=== PATIENT | female | born 1970 | race Caucasian/White ===

== ENCOUNTER 2017-03-01 23:09 | Observation (INO) | payer OTHER ==
--- NOTE | ~2017-03-01 | CR72 ---
[facility] A Service of [facility] [place] RADIOLOGY TEXT RESULTS PATIENT: SHERYL HARDY [facility] [id number] : [birth year] UNIT #: [id number] AGE: [address]: Mac Greene MD SEX: F ORDER DR: [id number] [facility] [address] [place], [place] [address] [id number] MR#: [id number] #: [id number] NAME: SHERYL HARDY : 1970 SEX: F STUDY DATE/TIME: 03/01/2017 23:45 UNIT: [facility] ROOM: STUDY DESCRIPTION: CR Chest Single View Portable Attending Physician: Bruno Brennan Ordering Physician: Ed Doc Yamileth Mccoy Primary Care Physician: Primary Care Physician No MEDICAL IMAGING REPORT This report is preliminary unless electronic signature is present EXAM Portable chest INDICATION Chest pain beginning today with shortness of air. FINDINGS A portable view of the chest was obtained. The heart size and vascularity are normal and the lungs are clear. There is significant external object overlying the left upper chest. There are postop changes of the cervical spine. IMPRESSION There is some type of external material over the left upper chest. I do not think there are any infiltrates present. There s no active disease. Dictated by... David Valenzuela M.D. THIS IS AN ELECTRONICALLY VERIFIED REPORT David Valenzuela M.D. at 03/02/2017 5:56 AM JIGNESH/liset TD: 03/02/2017 02:09 JOB #: [id number] MEDICAL IMAGING REPORT Page 1 of 1 COPY
--- NOTE | ~2017-03-01 | TH ---
Unit #: [id number] #: [id number] Patient: SHERYL HARDY [id number] [address] [address] [id number] I MR#: [id number] NAME: SHERYL HARDY : 1970 SEX: F STUDY DATE/TIME: 03/02/2017 UNIT: C3A PCU ROOM: 304 STUDY DESCRIPTION: NUCLEAR STUDY Attending Physician: Mac Greene M.D. Primary Care Physician: Primary Care Physician No CARDIOLOGY REPORT EXAM Nuclear Study, EKG component FINDINGS Baseline EKG normal sinus rhythm. Nonspecific ST-T changes. Resting heart rate 55 per minute, blood pressure 122/79. This 46-year-old patient received 0.4 mg of Lexiscan intravenously. During the test, no ischemic changes noted, no arrhythmias noted. Blood pressure was stable. INTERPRETATION 1. Nondiagnostic EKG during Lexiscan. 2. No arrhythmias noted. 3. Stable blood pressure during the test. 4. Correlate with the Cardiolite study. EXAM Nuclear Study, Cardiolite study DESCRIPTION This 46-year-old patient received 0.4 mg of Lexiscan intravenously, followed by 32.5 mCi of technetium-99m Cardiolite and images were obtained according to standard SPECT protocol. For rest images 11.15 mCi of Cardiolite was injected. Images were reviewed in both phases. FINDINGS Overall study quality is excellent. LV cavity size is normal in both images. No lung activity. RV is normal. Rotating raw data showed no significant artifact, soft tissue attenuation, or GI uptake. Review of the SPECT images showed a normal homogeneous radiotracer concentration throughout the myocardium in both the stress and rest images. Gated images showed a normal LV wall thickening and wall motion with an estimated LV ejection fraction 59%. IMPRESSION 1. Myocardial perfusion imaging is normal. 2. No evidence of ischemia or infarct. 3. Normal left ventricular dimensions. 4. Normal systolic left ventricular function with an estimated left ventricular ejection fraction 59%. Unit #: [id number] #: [id number] Patient: SHERYL HARDY Dictated by... Yamileth Gonzalez/cheyenne TD: 03/02/2017 23:05 JOB #: [id number] CARDIOLOGY REPORT Page 1 of 1 X Andrea Armstrong MD CARDIOLOGY REPORT
--- NOTE | ~2017-03-01 | EKG ---
PATIENT: SHERYL HRADY UNIT #: [id number] Ventricular Rate: 74 BPM Atrial Rate: 74 BPM P-R Interval: 140 ms QRS Duration: 84 ms Q-T Interval: 414 ms QTC Calculation(Bezet): 459 ms P Gaylord: 27 degrees Calculated R Gaylord: 25 degrees Calculated T Gaylord: 45 degrees Diagnosis Line: Normal sinus rhythm Diagnosis Line: Low voltage QRS Diagnosis Line: Borderline ECG Diagnosis Line: No previous ECGs available Diagnosis Line: Confirmed by ZONIA NORMAN MD ([id number]) on Diagnosis Line: 03/02/2017 11:33:26 AM INTERPRETING MD: ESTER CHRIS
--- NOTE | ~2017-03-01 | HP ---
Unit #: [id number] #: [id number] Patient: SHERYL HARDY [id number] [address] [address] [id number] I MR#: [id number] NAME: SHERYL HARDY ROOM: 304 Age: 46 Sex: F Admission Date: 03/02/2017 : 1970 Attending Physician: Mac Greene M.D. Primary Care Physician: No Primary Care Physician HISTORY AND PHYSICAL REASON FOR ADMISSION Chest pain. HISTORY OF PRESENT ILLNESS This is a 46-year-old white female who is a patient of Dr. Bullock. She has a prior history of HIV, anemia, hypertension, seizure disorder, bipolar disorder and tobacco abuse. She reportedly had a cardiac cath done in 2014 with a reported 80% blockage which was treated medically (records are not available at this time). She reported to the ER yesterday with chest pain described as chest tightness spreading into her left back with some shortness of air and diaphoresis. The patient denied nausea or radiating pain into her arm or jaw. The pain lasted approximately 10 minutes, then resolved but returned later. Nitroglycerin times one did not help so she came to the ER. She does report that she occasionally has intermittent chest pain that resolves with nitroglycerin usually. Currently, she is chest pain free. PAST MEDICAL HISTORY 1. HIV. 2. Anemia. 3. Hypertension. 4. Seizure disorder. 5. Bipolar disorder. 6. Tobacco abuse. 7. Cardiac cath in 2014 with 80% blockage and medical management. PAST SURGICAL HISTORY 1. Cervical fusion. 2. Hysterectomy. 3. Tubal ligation. SOCIAL HISTORY Half pack per day smoker x30 years. The patient denies alcohol or illicit drug use. FAMILY HISTORY Negative for premature coronary artery disease. ALLERGIES Penicillin and latex. HOME MEDICATIONS 1. Pravachol 20 mg p.o. daily. Unit #: [id number] #: [id number] Patient: SHERYL HARDY 2. Gabapentin 300 mg p.o. four times a day. 3. Protonix 40 mg p.o. daily. 4. Vitamin D3 1,000 units p.o. daily. 5. Breo Ellipta one inhalation daily. 6. Aspirin 81 mg p.o. daily. 7. Seroquel 300mg p.o. twice a day. 8. Primidone 50 mg p.o. at bedtime. 9. Sarafem 20 mg daily. 10. Zyrtec 10 mg p.o. daily. 11. Hydrochlorothiazide 12.5 mg p.o. daily. 12. Diclofenac sodium 75 mg p.o. twice a day. 13. Hydroxyzine pamoate 25 mg p.o. three times a day. 14. Coreg 12.5 mg p.o. twice a day. 15. Nitroglycerin 0.4 mg sublingual as needed for chest pain. 16. Lisinopril 10 mg p.o. daily. REVIEW OF SYSTEMS Otherwise negative except for what was stated in the HPI. PHYSICAL EXAMINATION GENERAL APPEARANCE: This is a pleasant 46-year-old female resting in bed in no acute distress. VITAL SIGNS: Temperature 97.8. Heart rate 68. Respiratory rate 16. Blood pressure 134/86. Height 64". Weight 79.8 kg. HEENT: Head is atraumatic and normocephalic. Pupils are equal and round. Mucous membranes are moist. NECK: Supple. Trachea is midline. Negative for JVD. LUNGS: Clear to auscultation. Nonlabored respirations. CARDIOVASCULAR: S1 and S2. Regular rate and rhythm. Negative for murmur, rubs or gallops. ABDOMEN: Soft, nontender, nondistended. EXTREMITIES: Pulses are palpable. No pedal edema. No edema. No cyanosis. NEUROLOGIC: Alert and oriented x3. The patient moves all extremities equally and follows commands without difficulty. DIAGNOSTIC STUDIES LABORATORY: Sodium 139, potassium 3.1, chloride 104, BUN 11, creatinine 0.7, glucose 97. Hemoglobin 12.8, hematocrit 39.1, WBC count 8.4, platelets 190. AST 26, ALT 24, alkaline phosphatase 99. Point of care troponin less than 0.05 and troponin at 7 a.m. less than 0.03. IMAGING: Chest x-ray showed no active disease. CARDIOVASCULAR: EKG revealed normal sinus rhythm with a ventricular rate of [address]-T wave changes. ASSESSMENT 1. Chest pain, troponin and EKG negative. 2. HIV, well maintained on medications. 3. Coronary artery disease with reported 80% blockage in 2015, records not available at this time. 4. Tobacco abuse. 5. Seizure disorder. 6. Bipolar disorder. 7. Hypokalemia. PLAN Unit #: [id number] #: [id number] Patient: SHERYL HARDY Currently, chest pain free. Troponins and EKGs were negative for ischemia. We will obtain her cath report and do a stress test. Check TSH and hemoglobin A1C. Replace potassium and obtain echocardiogram. Continue home medications. Dictated by Mona Altamirano APRN for Yamileth Gonzalez/lee TD: 03/02/2017 10:48 JOB #: [id number] HISTORY AND PHYSICAL Page 1 of 1 X X HISTORY AND PHYSICAL
--- NOTE | ~2017-03-01 | DS ---
Unit #: [id number] #: [id number] Patient: SHERYL HARDY [id number] [address] [address] [id number] I MR#: [id number] NAME: SHERYL HARDY ROOM: 304 Age: 46 Sex: F Admission Date: 03/02/2017 : 1970 Discharge Date: 03/02/2017 Attending Physician: Mac Greene M.D. DISCHARGE SUMMARY DISCHARGE DIAGNOSES 1. Chest pain, noncardiac. 2. Human immunodeficiency virus. 3. Coronary artery disease, status post catheterization 2014, which revealed nonobstructive disease. 4. Tobacco abuse. 5. Seizure disorder. 6. Bipolar disorder. DISCHARGE MEDICATIONS 1. Pravachol 20 mg p.o. once a day. 2. Gabapentin 300 mg p.o. 4 times a day. 3. Protonix 40 mg p.o. daily. 4. Vitamin D3 1000 units p.o. daily. 5. Breo Ellipta 1 inhalation daily. 6. Aspirin 81 mg p.o. daily. 7. SEROquel 300 mg p.o. twice a day. 8. Primidone 50 mg p.o. at bedtime. 9. Sarafem 20 mg p.o. daily. 10. Zyrtec 10 mg p.o. daily. 11. Hydrochlorothiazide 12.5 mg p.o. daily. 12. Diclofenac sodium 75 mg p.o. twice a day. 13. Hydroxyzine pamoate 25 mg p.o. 3 times a day. 14. Coreg 12.5 mg p.o. twice a day. 15. Nitroglycerin 0.4 mg sublingual as needed for chest pain. 16. Lisinopril 10 mg p.o. once a day. HOSPITAL COURSE This is a 46-year-old, female whose primary bridge inspector is Dr. Bullock. She has a prior history of HIV, anemia, hypertension, seizure disorder, bipolar disorder, and tobacco abuse. She had a cardiac cath in 2014, which showed nonobstructive coronary artery disease. He reported to the ER yesterday with chest pain described as chest pain described as chest tightness spreading into her left back with some shortness of air and diaphoresis after being outside in the hot sun for a prolonged period of time. The pain resolved after 10 minutes and then returned later and did not resolve with nitroglycerin so she came to the ER. She has not had any recurrent chest pain since arriving in the ER. She underwent stress test today. Attempted Cardiolite exercise stress test, but it had to be stopped due to extreme fatigue 8 minutes into the test with her heart rate not close to target heart rate. She was changed to a Lexiscan Cardiolite stress test, which she underwent. Nuclear images showed no inducible ischemia. An echocardiogram was done, which showed left ventricular ejection fraction 55% and left ventricular hypertrophy per Dr. Armstrong. Unit #: [id number] #: [id number] Patient: SHERYL HARDY She is currently chest pain free with no recurrent incidences of chest pain during her hospital stay. She is stable for discharge home today. PHYSICAL EXAMINATION Stable for discharge. VITAL SIGNS: Temp 97.5, heart rate 53, respirations 20, O2 sat 98, and blood pressure 103/57. CHEST: Clear to auscultation without rales, rhonchi, or wheezing. HEART: S1 and S2. Regular rate and rhythm. ABDOMEN: Soft with positive bowel sounds auscultated. EXTREMITIES: Pedal pulses are palpable. No edema and no cyanosis. DIAGNOSTIC STUDIES LABORATORY: Glucose 97, BUN 11, creatinine 0.7, sodium 139, potassium 3.1. Troponin less than 0.03. Hemoglobin 12.8, hematocrit 39.1, white blood cell count 8.4, and platelets 190. IMAGING: Chest x-ray showed no active disease. CARDIOVASCULAR: EKG revealed normal sinus rhythm with ventricular rate of [address]-T wave changes. Cardiolite images report is not currently available at this time, but, per Dr. Armstrong, no inducible ischemia. Echocardiogram was performed and report is not available at this time, but, per Dr. Armstrong, LV EF 55% and left ventricular hypertrophy. DISCHARGE INSTRUCTIONS 1. The patient will be discharged home today. 2. Follow up with primary care physician in 1-2 weeks. 3. Follow up with primary bridge inspector, Dr. Bullock, in 4-6 weeks. 4. Resume home diet. 5. Counseled on smoking cessation. Patient verbalized an understanding of this. 6. Resume home medications. Dictated by... Mona Adarsh, RECYCLING OPERATIONS MANAGERYamileth Keyes TD: 03/03/2017 09:23 JOB #: [id number] DISCHARGE SUMMARY Page 1 of 1 X X DISCHARGE SUMMARY
[~2017-03-01 23:09] MED LIST: BACTRIM DS TABL1 TA1 PO; CETIRIZINE HCL10 MG PO; COREG12.5 MG PO; CYCLOBENZAPRINE5 MG PO; HYDROCHLOROTH12.5 MG PO; LISINOPRIL10 MG PO; LOW DOSE ASPIRI81 M2 PO; NASONEX17 GM; NITROSTAT0.4 MG SL; NORVIR100 M1 PO; PANTOPRAZOLE SO40 MG PO; PHENERGAN25 M1 PO; PREZISTA800 MG PO; PROZAC PO; TRUVADA 200 MG1 EACH PO; VIBRAMYCIN100 M1 PO; VOLTAREN75 MG PO; ZOFRAN8 MG PO
[2017-03-02 00:44] LABS: BASOPHIL% 0.5 % (0-2.5); DIFF IND NO; EOSINOPHIL# 0.3 X10e3 (0-0.7); EOSINOPHIL% 3.6 % (0.0-7.0); HEMATOCRIT 39.1 % (35.0-45.0); HEMOGLOBIN 12.8 gm/dL (12.0-16.0); LYMPHOCYTE# 2.7 X10e3 (1.0-3.5); LYMPHOCYTE% 31.9 % (17.0-45.0); MEAN CELL VOLUME 93.9 FL (83-96); MEAN CORPUSCULAR HEMOGLOBIN 30.8 PG (28-34); MEAN CORPUSCULAR HGB CONC 32.8 g/dL (30-36); MEAN PLATELET VOLUME 8.9 FL (6.5-11.5); MONOCYTE# 0.7 X10e3 (0-1.0); MONOCYTE% 8.9 % (3.0-12.0); NEUTROPHIL# 4.6 X10e3 (1.5-7.1); NEUTROPHIL% 55.1 % (40-75); PLATELET COUNT 190 X10e3 (140-420); RED BLOOD COUNT 4.16 X10e (3.90-5.30); RED CELL DISTRIBUTION WIDTH 12.5 % (11.0-15.5); WHITE BLOOD COUNT 8.4 X10e3 (4.0-10.5)
[2017-03-02 01:06] LABS: POC - CKMB <1.0 ng/mL (0.0-7.9); POC - TROPONIN <0.05 ng/mL (<=0.05)
[2017-03-02 01:09] LABS: ALBUMIN SERUM 3.8 g/dL (3.5-5.0); BILIRUBIN,TOTAL 0.4 mg/dL (0.2-2.0); BUN/CREATININE RATIO 13.33; CALCIUM SERUM 9.1 mg/dL (8.4-10.2); CREATININE SERUM 0.9 mg/dL (0.6-1.4); GLOM FILT RATE Estimated 76.2 mL/min (>60); POTASSIUM 3.1 mmol/L (3.5-5.1); PROTEIN TOTAL SERUM 6.7 g/dL (6.0-8.3)
[2017-03-02 01:13] LABS: BILIRUBIN, DIRECT 0.1 mg/dL (0.0-0.2); BILIRUBIN,INDIRECT 0.3 mg/dL (0.0-0.9)
[2017-03-02 02:50] LABS: POC - CKMB <1.0 ng/mL (0.0-7.9); POC - TROPONIN <0.05 ng/mL (<=0.05)
[2017-03-02] MEDS ORDERED: PRAVACHOL20 MG PO (02:58)
[2017-03-02] MEDS ORDERED: GABAPENTIN300 M2 PO (02:58)
[2017-03-02] MEDS ORDERED: LO-DOSE ASPIRIN81 M1 PO (02:59)
[2017-03-02] MEDS ORDERED: BREO ELLIPTA 11 EACH INH (02:59)
[2017-03-02] MEDS ORDERED: PROTONIX PO (02:59)
[2017-03-02] MEDS ORDERED: VITAMIN D-32000 UNI1 PO (02:59)
[2017-03-02] MEDS ORDERED: QUETIAPINE FUM300 MG PO (03:00)
[2017-03-02] MEDS ORDERED: MYSOLINE50 M1 PO (03:00)
[2017-03-02] MEDS ORDERED: SARAFEM20 MG PO (03:00)
[2017-03-02] MEDS ORDERED: HYDROCHLOROTH12.5 M1 PO (03:01)
[2017-03-02] MEDS ORDERED: ZYRTEC10 M1 PO (03:01)
[2017-03-02] MEDS ORDERED: VOLTAREN75 MG PO (03:02)
[2017-03-02] MEDS ORDERED: HYDROXYZINE PAM25 M1 PO (03:02)
[2017-03-02] MEDS ORDERED: LISINOPRIL10 MG PO (03:03)
[2017-03-02] MEDS ORDERED: CARVEDILOL12.5 MG PO (03:03)
[2017-03-02] MEDS ORDERED: NITROGLYGERIN0.4 MG SL (03:03)
[2017-03-02 07:55] LABS: BUN/CREATININE RATIO 15.71; CALCIUM SERUM 9.1 mg/dL (8.4-10.2); CREATININE SERUM 0.7 mg/dL (0.6-1.4); GLOM FILT RATE Estimated 103.2 mL/min (>60); POTASSIUM 3.1 mmol/L (3.5-5.1)
[2017-03-02 08:11] LABS: %MB 1.2 % (0.0-4.0); MB 0.9 ng/ml
[2017-03-02 13:34] LABS: HEMATOCRIT 40.1 % (35.0-45.0); HEMOGLOBIN 13.2 gm/dL (12.0-16.0); MEAN CELL VOLUME 93.6 FL (83-96); MEAN CORPUSCULAR HEMOGLOBIN 30.8 PG (28-34); MEAN CORPUSCULAR HGB CONC 32.9 g/dL (30-36); MEAN PLATELET VOLUME 8.6 FL (6.5-11.5); RED BLOOD COUNT 4.29 X10e (3.90-5.30); RED CELL DISTRIBUTION WIDTH 12.6 % (11.0-15.5); WHITE BLOOD COUNT 7.3 X10e3 (4.0-10.5)
[2017-03-02 14:09] LABS: BUN/CREATININE RATIO 14.28; CALCIUM SERUM 9.3 mg/dL (8.4-10.2); CREATININE SERUM 0.7 mg/dL (0.6-1.4); GLOM FILT RATE Estimated 103.2 mL/min (>60); POTASSIUM 4.1 mmol/L (3.5-5.1)
[2017-03-02 14:37] LABS: %MB 1.1 % (0.0-4.0); MB 0.9 ng/ml
== END 2017-03-02 14:42 | disposition home or self-care (01) ==
LOC: CED 23:09 → CEDOF 03-02 04:20 → CED 03-02 04:31 → C3A PCU 03-02 07:51 → CEDOF 03-02 07:51 → C3A PCU 03-02 14:42
PROVIDERS: Emergency Medicine
DX: R07.9 Chest pain, unspecified (principal); B20 Human immunodeficiency virus [HIV] disease; I51.7 Cardiomegaly; I25.10 Atherosclerotic heart disease of native coronary artery without angina pectoris; D64.9 Anemia, unspecified; E87.6 Hypokalemia; F17.200 Nicotine dependence, unspecified, uncomplicated; G40.909 Epilepsy, unspecified, not intractable, without status epilepticus; F31.9 Bipolar disorder, unspecified; Z79.82 Long term (current) use of aspirin; Z79.899 Other long term (current) drug therapy; Z90.710 Acquired absence of both cervix and uterus; Z98.51 Tubal ligation status
CPT/HCPCS: 71010; 78452; 80048; 80076; 82550; 82553; 83036; 84443; 84484; 85025; 85027; 93005; 93017; 93306; 99285; A9500; G0378; J2785